=== PATIENT | female | born 1950 | race Caucasian/White ===

== ENCOUNTER 2016-09-19 07:17 | Emergency (ER) | payer OTHER ==
[~2016-09-19] VITALS: Ht 172.7 cm; Wt 63.7 kg
[~2016-09-19 07:17] MED LIST: DDAVP NS; MECLIZINE HCL25 M2 PO; MIDRIN1 CAPSULE PO; MOTRIN800 MG PO; ZOFRAN4 MG PO
[2016-09-19] MEDS ORDERED: GINGER250 MG PO (07:41)
[2016-09-19] MEDS ORDERED: FOLIC ACID0.4 MG PO (07:43)
[2016-09-19 08:16] LABS: HEMATOCRIT 43.5 % (36.0-46.0); MCH 30.1 PG (29.0-34.0); MCHC 33.6 G/DL (30.0-36.0); MCV 89.7 FL (83-99); MEAN PLAT.VOLUME 9.9 uM^3 (9.5-12.4); PLATELET COUNT 219 K/uL (156-360); RBC DIS.WIDTH-CV 12.7 % (11.8-14.6); RBC DIS.WIDTH-SD 41.8 % (39-53); RED BLOOD COUNT 4.85 M/uL (3.80-5.20); WHITE BLOOD COUNT 5.5 K/uL (4.1-10.2)
[2016-09-19 08:25] LABS: CHLORIDE 106 mEq/L (99-109); SODIUM 141 mEq/L (136-147)
[2016-09-19 08:27] LABS: GLUCOSE 87 mg/dL (70-99)
[2016-09-19 08:29] LABS: ANION GAP 11 MEQ/L (2-14); TOTAL BILIRUBIN 0.6 mg/dL (0.0-1.0)
[2016-09-19 08:31] LABS: ALKALINE PHOSPHATASE 94 IU/L (3-129); GFR ESTIMATE (CALCULATED) > 59 mL/min/
[2016-09-19 08:32] LABS: UREA NITROGEN (BUN) 17 mg/dL (9-23)
[2016-09-19 09:41] LABS: ADD MIUA? YES; BILIRUBIN NEGATIVE; BLOOD NEGATIVE; COLOR AMBER ((YELLOW)); GLUCOSE (STRIP) NEGATIVE; KETONES NEGATIVE; LEUKOCYTES SMALL; NITRITE NEGATIVE; PROTEIN (STRIP) 30; SPECIFIC GRAVITY 1.027 (1.000-1.030); UROBILINOGEN 0.2 MG/DL (0.2-1.0)
[2016-09-19 09:48] LABS: BACTERIA NONE SEEN /HPF; CALCIUM OXALATE CRYSTALS 4+ /HPF; EPITHELIAL CELLS RARE /HPF; MUCUS TRACE /LPF; RED BLOOD CELLS 0-5 /HPF (0-5); UCUL ADDED? NO
[2016-09-19] MEDS ORDERED: KEFLEX500 MG PO (10:04)
[2016-09-19 10:38] VITALS: BP 126/70
== END 2016-09-19 10:40 | disposition home or self-care (01) ==
LOC: EME 07:17
PROVIDERS: Nurse Practitioner Family
DX: N39.0 Urinary tract infection, site not specified (principal); E86.0 Dehydration; R20.2 Paresthesia of skin; S70.362A Insect bite (nonvenomous), left thigh, initial encounter; W57.XXXA Bitten or stung by nonvenomous insect and other nonvenomous arthropods, initial encounter
CPT/HCPCS: 80053; 81003; 85027; 93005; 99281; 99285; J7030